=== PATIENT | female | born 1945 | race Caucasian/White ===

== ENCOUNTER → 2016-10-20 | Outpatient (CLI) | payer OTHER ==
[~2016-10-20] MED LIST: CYMBALTA30 MG PO
[2016-10-20 11:13] LABS: HEMOGLOBIN 11.9 gm/dl (12.3-15.3); RED BLOOD COUNT 5.5 M/UL (4.00-5.10); WHITE BLOOD COUNT 6.9 K/UL (4.5-11.0)
[2016-10-20 11:29] LABS: BUN/CREATININE RATIO 21 (0-10)
== END ==
LOC: LAB 09:25
PROVIDERS: Ophthalmology
DX: H47.019 Ischemic optic neuropathy, unspecified eye (principal); H34.9 Unspecified retinal vascular occlusion
CPT/HCPCS: 36415; 80048; 85025; 86140